=== PATIENT | female | born 1975 | race African-American/Black ===

== ENCOUNTER 2016-10-10 22:09 | Emergency (ER) | payer OTHER ==
[2016-10-10 22:26] VITALS: BP 124/75; BMI 26.0
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
[2016-10-10] MEDS ORDERED: TORADOL 60 MG VIAL IM ONE (23:51)
[2016-10-10] MEDS ORDERED: TORADOL 60 MG VIAL ONE (23:55)
== END 2016-10-11 00:13 | disposition home or self-care (01) ==
LOC: ER 22:32
DX: G44.319 Acute post-traumatic headache, not intractable (principal)
CPT/HCPCS: 96372; 99282; J1885

== ENCOUNTER 2017-01-22 11:43 | Emergency (ER) | payer OTHER ==
[2017-01-22 11:48] VITALS: BP 181/95; BMI 28.7
--- NOTE | 2017-01-22 12:47 | DR.EXTPAIN ---
HPI - Time seen Time seen: 12:39 - PCP Primary Care Physician: GUERO - Complaint/Symptoms Chief Complaint Doctor Comments: L sided back pain after falling( " I did a split") Chief Complaint:: FELL AT THE [employer] OUT FRONT Self Treatment fo Chief Complaint: NONE - Nurses notes reviewed Nurses Notes Review: Yes - Source History Provided: Patient - Mode of arrival Mode of Arrival: Ambulatory - Timing Onset of Chief Complaint: 01/22/17 - Associated signs and symptoms Associated Signs and Symptoms: Pain PMH - PMH Past Medical History: No Past Medical History: Anxiety, Migraines Past Surgical History: Yes 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 Past Surgical History Comment: TUBAL - Family History History of Family Medical Conditions: Yes Family Medical History: Diabetes Mellitus, Cancer, Coronary Artery Disease - Social History Does patient currently use any type of tobacco product: Yes Have you used tobacco products in the last 12 months: Yes Type of Tobacco Use: Cigarettes How many years tobacco product used: 22 Does any household member use tobacco: No Alcohol Use: None Do you use any recreational Drugs:: No Lives With: Family Lives Where: Home - infectious screening In the last 2 months have you had wt loss of >10#?: NO Have you had fever, night sweats or hemotysis?: No Have you traveled outside the country in the last 6 months?: No Isolation: Standard ROS - Review of Systems Respiratoy: No Symptoms Reported Cardiovascular: No Symptoms Reported Gastrointestinal/Abdominal: No Symptoms Reported Genitourinary: No Symptoms Reported Neurological: No Symptoms Reported Musculoskeletal: Back Pain Integumentary: No Symptoms Reported Hematologic/Lymphatic: No Symptoms Reported Endocrine: No Symptoms Reported Psychiatric: No Symptoms Reported All Other Systems: Reviewed and Negative PE - Vital Signs Vitals: Temperature 98.1 F Pulse Rate 107 Respiratory Rate 16 Blood Pressure 181/95 O2 Sat by Pulse Oximetry 100 - General Limitations: No Limitations General Appearance: Alert, In No Apparent Distress - Head Head Exam: Normal Inspection - Eyes Eye exam: Normal Appearance - Neck Neck Exam: Normal Inspection, Full ROM - Chest Chest Inspection: Normal Inspection - Respiratory Respiratory Exam: Normal Lung Sounds Bilat - Cardiovascular Cardiovascular Exam: Regular Rate, Normal Rhythm, Normal Heart Sounds - Abdominal Exam Abdominal Exam: Normal Inspection, Normal Bowel Sounds, Soft - Extremities Extremities Exam: Normal Inspection, Full ROM - Upper Extremities Shoulder Exam: Normal Inspection, Full ROM Arm Exam: Normal Inspection, Full ROM Elbow Exam: Normal Inspection, Full ROM Forearm Exam: Normal Inspection, Full ROM Hand Exam: Normal Inspection, Full ROM Neuromotor Exam: Normal Exam Neurosensory Exam: Normal Exam Upper Ext. Vascular Exam: Capillary Refill, Radial Pulse, Ulnar Pulse, Brachial Pulse - Lower Extremities Hip/Pelvis Exam: Normal Inspection, Full ROM Upper Leg Exam: Normal Inspection, Full ROM Knee Exam: Normal Inspection, Full ROM Lower Leg Exam: Normal Inspection, Full ROM Ankle Exam: Normal Inspection, Full ROM Foot/Toe Exam: Normal Inspection, Full ROM Neurovascular/Tendon Exam: Normal Capillary Refill Gait Exam: Observed & Limited by Pain, Antalgic - Back Back Exam: Normal Inspection, Full ROM, Paraspinal Tenderness - Neurological Neurological Exam: Alert, Oriented X3, CN II-XII Intact - Psychiatric Psychiatric Exam: Normal Affect, Normal Mood - Skin Skin Exam: Warm, Dry, Intact, Normal Color - Discharge Plan Condition: Stable - Follow ups/Referrals Follow ups/Referrals: Urmila JACK [Primary Care Provider] - 3 days - Instructions
[2017-01-22] MEDS ORDERED: TORADOL 60 MG VIAL IM ONE (12:51)
[2017-01-22] MEDS ORDERED: DECADRON INJ IM ONE (12:51)
[2017-01-22] MEDS ORDERED: DECADRON INJ ONE (12:56)
[2017-01-22] MEDS ORDERED: TORADOL 60 MG VIAL ONE (12:56)
--- NOTE | 2017-01-22 13:42 | RAD ---
HISTORY: Back pain Study: Five views of the lumbar spine Comparison: None Findings: There is slight dextro curvature of the lumbar spine which may be accentuated by patient position. T he lumbar vertebral body heights are relatively maintained. No evidence of acute displaced fracture or significant subluxation is identified. Mild degenerative facet changes are noted. Minimal multile aman osteophytosis is also demonstrated. Portions of the spine are obscured by overlying bowel conten t. If symptoms persist correlation with CT and or MRI may be helpful. IMPRESSION: 1. Mild degenerative changes as above. Reported By:
== END 2017-01-22 13:37 | disposition home or self-care (01) ==
LOC: ER 12:09
DX: S39.012A Strain of muscle, fascia and tendon of lower back, initial encounter (principal); W19.XXXA Unspecified fall, initial encounter; Y92.512 Supermarket, store or market as the place of occurrence of the external cause
CPT/HCPCS: 72110; 96372; 99282; J1100; J1885

== ENCOUNTER 2017-11-04 20:58 | Emergency (ER) | payer OTHER ==
[2017-11-04 21:04] VITALS: BMI 28.7
[2017-11-04] MEDS ORDERED: ASPIRIN 81 MG CHEWTAB ONE (21:15)
[2017-11-04] MEDS ORDERED: NITROSTAT SL ONE (21:15)
--- NOTE | 2017-11-04 21:22 | DR.GENAD ---
HPI - PCP Primary Care Physician: GUERO - Complaint/Symptoms Chief Complaint Doctors Comments: Patient denies a history of cardiopulmonary disease. Patient has hypertension but has not taken her medication in 1-2 weeks. Chief Complaint:: PT STATES" I HAD TO CALL THE AMBULANCE TO BRING MY DADDY AND I GUESS I'LL JUST GO AHEAD AND GET CHECKED OUT. 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 - Family History History of Family Medical Conditions: Yes Family Medical History: Diabetes Mellitus, Cancer, Coronary Artery Disease - Social History Type of Tobacco Use: Cigarettes Does any household member use tobacco: No Alcohol Use: Occasionally Do you use any recreational Drugs:: No Lives With: Family Lives Where: Home - infectious screening In the last 2 months have you had wt loss of >10#?: NO Have you had fever, night sweats or hemotysis?: No Have you traveled outside the country in the last 6 months?: No Isolation: Standard ROS - Review of Systems Eyes: No Symptoms Reported ENTM: No Symptoms Reported Respiratoy: No Symptoms Reported Cardiovascular: No Symptoms Reported Gastrointestinal/Abdominal: No Symptoms Reported Genitourinary: No Symptoms Reported Neurological: No Symptoms Reported Musculoskeletal: No Symptoms Reported Integumentary: No Symptoms Reported Hematologic/Lymphatic: No Symptoms Reported Endocrine: No Symptoms Reported Psychiatric: No Symptoms Reported All Other Systems: Reviewed and Negative PE - Vital Signs Vitals: Temperature 99 F Pulse Rate 97 Respiratory Rate 18 Blood Pressure 178/115 O2 Sat by Pulse Oximetry 100 - General General Appearance: Alert, In No Apparent Distress - Head Head Exam: Normal Inspection, Atraumatic - Eyes Eye exam: Normal Appearance, PERRL, EOMI - ENT ENT Exam: Normal Exam External Ear Exam: Normal External Inspection TM/Canal Exam: Bilateral Normal Nose Exam: Normal Nose Exam, Sinus Tenderness Mouth Exam: Normal Inspection Throat Exam: Normal Inspection - Neck Neck Exam: Normal Inspection - Chest Chest Inspection: Normal Inspection - Respiratory Respiratory Exam: Normal Lung Sounds Bilat Respiratory Exam: Bilateral Clear to Auscultation - Cardiovascular Cardiovascular Exam: Regular Rate - Abdominal Exam Abdominal Exam: Normal Inspection, Normal Bowel Sounds Abdominal Tenderness: negative: RUQ, RLQ, LUQ, LLQ, Epigastrium, Suprapubic, Diffuse, Mild, Moderate, Severe, Other - Extremities Extremities Exam: Normal Inspection, Full ROM - Back Back Exam: Normal Inspection, Full ROM - Neurologic Neurological Exam: Alert, Oriented X3, CN II-XII Intact - Psychiatric Psychiatric Exam: Normal Affect, Normal Mood - Skin Skin Exam: Warm, Dry, Intact Course - Education/Counseling Educated On: Treatment, Diagnosis, Prognosis ROR - Labs Reviewed Result Diagrams: 11/04/17 21:25 11/04/17 21:25 Laboratory: WBC 5.9 X10^3/uL (3.6-10.0) 11/04/17 21: RBC 4.23 X10^6/uL (3.5-5.4) 11/04/17 21: Hgb 10.0 g/dL (12.0-16.0) L 11/04/17 21:25 Hct 31.6 % (36.0-47.0) L 11/04/17 21:25 MCV 74.7 fL (80.0-100.0) L 11/04/17 21:25 MCH 23.7 pg (27.0-34.0) L 11/04/17 21: MCHC 31.7 g/dL (33.0-35.0) L 11/04/17 21: RDW 18.1 % (11.6-16.5) H 11/04/17 21:25 Plt Count 351 X10^3/uL (150.0-450.0) 11/04/17 21:25 Plt Count Comment Adequate (ADEQUATE) 11/04/17 21:25 MPV 8.0 fL (7.4-11.0) 11/04/17 21:25 Neut % (Auto) 39.3 % (42.0-75.0) L 11/04/17 21:25 Lymph % (Auto) 49.4 % (21.0-51.0) 11/04/17 21:25 [place] % (Auto) 7.9 % (0.0-13.0) 11/04/17 21:25 Eos % (Auto) 1.8 % (0.9-2.9) 11/04/17 21:25 Baso % (Auto) 1.6 % (0.2-1.0) H 11/04/17 21:25 Neut # (Auto) 2.3 x10^3/uL (2.2-4.8) 11/04/17 21: Lymph # (Auto) 2.9 X10^3/uL (1.3-2.9) 11/04/17 21:25 [place] # (Auto) 0.5 x10^3/uL (0.3-0.8) 11/04/17 21:25 Eos # (Auto) 0.1 x10^3/uL (0.0-0.2) 11/04/17 21:25 Baso # (Auto) 0.1 X10^3/uL (0.0-0.1) 11/04/17 21: Absolute Nucleated RBC 0.0 /100WBC 11/04/17 21:25 Plt Morphology Comment Normal (NORMAL) 11/04/17 21: RBC Morphology Abnormal (NORMAL) A 11/04/17 21: Hypochromasia 1+ A 11/04/17 21:25 INR Target Range - 11/04/17: INR 0.87 (0.8-1.3) 11/04/17 21: APTT 25.4 SECONDS (22.9-36.5) 11/04/17 21: PTT Comment - 11/04/17 21:25 Sodium 137 mmol/L (136-145) 11/04/17 21:25 Corrected Sodium TNP 11/04/17 21:25 Potassium 3.7 mmol/L (3.5-5.1) 11/04/17 21:25 Chloride 102 mmol/L (98-107) 11/04/17 21:25 Carbon Dioxide 26.5 mmol/L (21-32) 11/04/17 21:25 BUN 6 mg/dL (7-18) L 11/04/17 21:25 Creatinine 0.78 mg/dL (0.55-1.02) 11/04/17 21:25 Est GFR (MDRD) Af Amer > 60 (>60) 11/04/17 21:25 Est GFR (MDRD) Non-Af > 60 (>60) 11/04/17 21:25 Glucose 94 mg/dL (65-99) 11/04/17 21:25 Calcium 7.9 mg/dL (8.5-10.1) L 11/04/17 21:25 Corrected Calcium TNP 11/04/17 21:25 Magnesium 2.0 mg/dL (1.7-2.9) 11/04/17 21:25 Total Bilirubin 0.20 mg/dL (0.2-1.0) 11/04/17 21:25 AST 23 Units/L (15-37) 11/04/17 21:25 ALT 19 Units/L (12-78) 11/04/17 21:25 Alkaline Phosphatase 85 Units/L (46-116) 11/04/17 21:25 Creatine Kinase 216 Units/L (26-192) H 11/04/17 21:25 CK-MB (CK-2) < 1.0 ng/mL (0-4.0) 11/04/17 21:25 CK/CKMB % Calc 0.5 % (<4) 11/04/17 21:25 Troponin I < 0.02 ng/mL (0-1.5) 11/04/17 21:25 Total Protein 8.3 g/dL (6.4-8.2) H 11/04/17 21:25 Albumin 3.9 g/dL (3.4-5.0) 11/04/17 21:25 Globulin 4.4 g/dL (2.5-4.5) 11/04/17 21:25 Albumin/Globulin Ratio 0.9 Ratio (1.1-2.1) L 11/04/17 21:25 Specimen Type Clean catch urine 11/04/17 22:00 Urine Color Yellow (YELLOW) 11/04/17 22:00 Urine Appearance Clear (CLEAR) 11/04/17 22:00 Urine pH 7.0 (5.0 - 8.0) 11/04/17 22:00 Ur Specific [place] 1.005 (1.000-1.030) 11/04/17 22:00 Urine Protein Negative (NEGATIVE) 11/04/17 22:00 Urine Glucose (UA) Negative (NEGATIVE) 11/04/17 22:00 Urine Ketones Negative (NEGATIVE) 11/04/17 22:00 Urine Occult Blood Negative (NEGATIVE) 11/04/17 22:00 Urine Nitrite Negative (NEGATIVE) 11/04/17 22:00 Urine Bilirubin Negative (NEGATIVE) 11/04/17 22:00 Urine Urobilinogen Normal (NORMAL) 11/04/17 22:00 Ur Leukocyte Esterase Negative (NEGATIVE) 11/04/17 22:00 - XRAY XRAY Interpreted by: Radiologist (Acute Abdom Series: no acute abnormality) - Diagnosis Discharge Problem: Chest pain due to psychological stress Hypertension Qualifiers: Hypertension type: essential hypertension Qualified Code(s): I10 - Essential ( primary) hypertension - Discharge Plan Condition: Stable - Follow ups/Referrals Follow ups/Referrals: NFD,None [Primary Care Provider] - 3 days - Instructions
[2017-11-04] MEDS: NITROSTAT SL PRN ×2 (21:24→21:30)
[2017-11-04 21:36] LABS: BASOPHILS # (AUTO) 0.1 X10^3/uL (0.0-0.1); BASOPHILS % (AUTO) 1.6 % (0.2-1.0); EOSINOPHILS # (AUTO) 0.1 x10^3/uL (0.0-0.2); EOSINOPHILS % (AUTO) 1.8 % (0.9-2.9); HEMATOCRIT 31.6 % (36.0-47.0); LYMPHOCYTES # (AUTO) 2.9 X10^3/uL (1.3-2.9); LYMPHOCYTES % (AUTO) 49.4 % (21.0-51.0); MEAN CORPUSCULAR HEMOGLOBIN 23.7 pg (27.0-34.0); MEAN CORPUSCULAR HGB CONC 31.7 g/dL (33.0-35.0); MEAN CORPUSCULAR VOLUME 74.7 fL (80.0-100.0); MONOCYTES # (AUTO) 0.5 x10^3/uL (0.3-0.8); MONOCYTES % (AUTO) 7.9 % (0.0-13.0); NEUTROPHILS # (AUTO) 2.3 x10^3/uL (2.2-4.8); NEUTROPHILS % (AUTO) 39.3 % (42.0-75.0); PLATELET COUNT 351 X10^3/uL (150.0-450.0); RED BLOOD COUNT 4.23 X10^6/uL (3.5-5.4); RED CELL DISTRIBUTION WIDTH 18.1 % (11.6-16.5); WHITE BLOOD COUNT 5.9 X10^3/uL (3.6-10.0)
--- NOTE | 2017-11-04 21:43 | RAD ---
HISTORY: Chest pain Study: Single view chest Comparison:None Findings: Single portable view is submitted. No infiltrate, effusion or pneumothorax identified. The cardiac an d mediastinal contours are within normal limits. The soft tissues are unremarkable. IMPRESSION: 1. No acute cardiopulmonary abnormality. Reported By:
[2017-11-04 21:50] LABS: ALANINE AMINOTRANSFERASE 19 Units/L (12-78); ALBUMIN 3.9 g/dL (3.4-5.0); ALKALINE PHOSPHATASE 85 Units/L (46-116); ASPARTATE AMINO TRANSFERASE 23 Units/L (15-37); BLOOD UREA NITROGEN 6 mg/dL (7-18); CALCIUM 7.9 mg/dL (8.5-10.1); CARBON DIOXIDE 26.5 mmol/L (21-32); CHLORIDE 102 mmol/L (98-107); CREATININE 0.78 mg/dL (0.55-1.02); SODIUM 137 mmol/L (136-145); TOTAL PROTEIN 8.3 g/dL (6.4-8.2); eGFR BLACK RACES > 60 (>60); eGFR NON BLACK RACES > 60 (>60)
[2017-11-04] MEDS ORDERED: ASPIRIN PO SCH (22:00)
[2017-11-04 22:05] LABS: CKMB % 0.5 % (<4); CREATINE KINASE 216 Units/L (26-192); CREATINE KINASE MB < 1.0 ng/mL (0-4.0); TROPONIN I < 0.02 ng/mL (0-1.5)
[2017-11-04 22:14] LABS: BILIRUBIN,URINE NEGATIVE (NEGATIVE); BLOOD/HEMOGLOBIN,URINE NEGATIVE (NEGATIVE); GLUCOSE, URINE NEGATIVE (NEGATIVE); KETONES,URINE NEGATIVE (NEGATIVE); LEUKOCYTE ESTERASE ,URINE NEGATIVE (NEGATIVE); NITRITES,URINE NEGATIVE (NEGATIVE); PROTEIN,URINE NEGATIVE (NEGATIVE); UROBILINOGEN,URINE NORMAL (NORMAL)
[2017-11-04] MEDS ORDERED: MORPHINE SULFATE INJ 2 MG INJ IVP ONE (22:17)
[2017-11-04 22:18] LABS: HYPOCHROMASIA 1+; PLATELET MORPHOLOGY COMMENT NORMAL (NORMAL)
[2017-11-04 22:26] LABS: APPEARANCE,URINE CLEAR (CLEAR); COLOR,URINE YELLOW (YELLOW)
[2017-11-04] MEDS ORDERED: MORPHINE SULFATE INJ 2 MG INJ ONE (22:33)
[2017-11-04 22:45] VITALS: BP 148/75
== END 2017-11-04 22:50 | disposition home or self-care (01) ==
LOC: ER 21:09
DX: R07.89 Other chest pain (principal); I10 Essential (primary) hypertension
CPT/HCPCS: 36415; 71045; 80053; 81003; 82550; 82553; 83735; 84484; 85025; 85610; 85730; 93005; 93010; 96365; 96374; 99283; A4222; J2270

== ENCOUNTER 2018-01-05 19:19 | Observation (INO) ==
[2018-01-05] MEDS ORDERED: NITROSTAT SL ONE (20:00)
[2018-01-05] MEDS ORDERED: ASPIRIN ONE (20:00)
[2018-01-05] MEDS ORDERED: ASPIRIN PO ONE (20:01)
[2018-01-05] MEDS: NITROSTAT SL PRN ×3 (20:06→20:53)
[2018-01-05 20:15] LABS: BASOPHILS # (AUTO) 0.1 X10^3/uL (0.0-0.1); BASOPHILS % (AUTO) 1.3 % (0.2-1.0); EOSINOPHILS # (AUTO) 0.1 x10^3/uL (0.0-0.2); EOSINOPHILS % (AUTO) 0.9 % (0.9-2.9); HEMOGLOBIN 9.9 g/dL (12.0-16.0); LYMPHOCYTES # (AUTO) 2.8 X10^3/uL (1.3-2.9); LYMPHOCYTES % (AUTO) 36.2 % (21.0-51.0); MEAN CORPUSCULAR HEMOGLOBIN 24.8 pg (27.0-34.0); MEAN CORPUSCULAR HGB CONC 31.9 g/dL (33.0-35.0); MEAN PLATELET VOLUME 8.4 fL (7.4-11.0); MONOCYTES # (AUTO) 0.4 x10^3/uL (0.3-0.8); MONOCYTES % (AUTO) 5.7 % (0.0-13.0); NEUTROPHILS # (AUTO) 4.3 x10^3/uL (2.2-4.8); NEUTROPHILS % (AUTO) 55.9 % (42.0-75.0); PLATELET COUNT 347 X10^3/uL (150.0-450.0); RED BLOOD COUNT 3.97 X10^6/uL (3.5-5.4); WHITE BLOOD COUNT 7.7 X10^3/uL (3.6-10.0)
[2018-01-05] MEDS: NS 1000 ML 1,000 ML IV SCH (20:15)
--- NOTE | 2018-01-05 20:21 | RAD ---
Chest AP portable Indication: Chest pain. Comparison: 11/04/2017 Findings: There is no pneumothorax, effusion or consolidation. Monitoring leads obscure minimal detai l. Heart size is normal for technique. Impression: No acute chest process. Reported By:
--- NOTE | 2018-01-05 20:29 | DR.GENAD ---
HPI - PCP Primary Care Physician: GUERO - Complaint/Symptoms Chief Complaint Doctors Comments: Patient presented with complaint of chest pain for two days. She denies a history of cardiac dizease. She has been taking aspirin and pepto bismal and continues to have chest pain. The pain is left superior breast,back and down left arm. She smokes <a ppd. Chief Complaint:: CHEST PAIN. 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 - Family History History of Family Medical Conditions: Yes Family Medical History: Diabetes Mellitus, Cancer, Coronary Artery Disease - Social History Does patient currently use any type of tobacco product: Yes Have you used tobacco products in the last 12 months: Yes Type of Tobacco Use: Cigarettes Does any household member use tobacco: Yes Alcohol Use: None Do you use any recreational Drugs:: No Lives With: Family Lives Where: Home - infectious screening In the last 2 months have you had wt loss of >10#?: NO Have you had fever, night sweats or hemotysis?: No Have you traveled outside the country in the last 6 months?: No Isolation: Standard ROS - Review of Systems Eyes: No Symptoms Reported ENTM: No Symptoms Reported Respiratoy: No Symptoms Reported Cardiovascular: No Symptoms Reported Gastrointestinal/Abdominal: No Symptoms Reported Genitourinary: No Symptoms Reported Neurological: No Symptoms Reported Musculoskeletal: No Symptoms Reported Integumentary: No Symptoms Reported Hematologic/Lymphatic: No Symptoms Reported Endocrine: No Symptoms Reported Psychiatric: No Symptoms Reported All Other Systems: Reviewed and Negative PE - General General Appearance: Alert, In No Apparent Distress - Head Head Exam: Normal Inspection, Atraumatic - Eyes Eye exam: Normal Appearance, PERRL, EOMI - ENT ENT Exam: Normal Exam TM/Canal Exam: Bilateral Normal Nose Exam: Normal Nose Exam Mouth Exam: Normal Inspection Throat Exam: Normal Inspection - Neck Neck Exam: Normal Inspection, Full ROM - Chest Chest Inspection: Normal Inspection - Respiratory Respiratory Exam: Normal Lung Sounds Bilat Respiratory Exam: Bilateral Clear to Auscultation - Cardiovascular Cardiovascular Exam: Regular Rate - Abdominal Exam Abdominal Exam: Normal Inspection, Normal Bowel Sounds Abdominal Tenderness: negative: RUQ, RLQ, LUQ, LLQ, Epigastrium, Suprapubic, Diffuse, Mild, Moderate, Severe, Other - Extremities Extremities Exam: Normal Inspection - Back Back Exam: Normal Inspection - Neurologic Neurological Exam: Alert, Oriented X3, CN II-XII Intact - Psychiatric Psychiatric Exam: Normal Affect - Skin Skin Exam: Warm, Dry, Intact - Vital Signs Vitals: Temperature 98.2 F Pulse Rate [Right] 61 Pulse Rate 68 Respiratory Rate 21 Blood Pressure [Left Arm] 145/68 Blood Pressure 147/82 O2 Sat by Pulse Oximetry 100 Course - Reevaluation 1st: Improved - Consultation Called: 21:54 (Dr Leggett agreed to admit for further work up) ROR - Labs Reviewed Result Diagrams: 01/05/18 20:00 01/05/18 20:00 - XRAY XRAY Interpreted by: Radiologist (Chest: No acute chest process) - Labs Reviewed Laboratory: WBC 7.7 X10^3/uL (3.6-10.0) 01/05/18 20:00 RBC 3.97 X10^6/uL (3.5-5.4) 01/05/18 20:00 Hgb 9.9 g/dL (12.0-16.0) L 01/05/18 20:00 Hct 31.0 % (36.0-47.0) L 01/05/18 20:00 MCV 78.0 fL (80.0-100.0) L 01/05/18 20:00 MCH 24.8 pg (27.0-34.0) L 01/05/18 20:00 MCHC 31.9 g/dL (33.0-35.0) L 01/05/18 20:00 RDW 19.0 % (11.6-16.5) H 01/05/18 20:00 Plt Count 347 X10^3/uL (150.0-450.0) 01/05/18 20:00 Plt Count Comment Adequate (ADEQUATE) 01/05/18 20:00 MPV 8.4 fL (7.4-11.0) 01/05/18 20:00 Neut % (Auto) 55.9 % (42.0-75.0) 01/05/18 20:00 Lymph % (Auto) 36.2 % (21.0-51.0) 01/05/18 20:00 [place] % (Auto) 5.7 % (0.0-13.0) 01/05/18 20:00 Eos % (Auto) 0.9 % (0.9-2.9) 01/05/18 20:00 Baso % (Auto) 1.3 % (0.2-1.0) H 01/05/18 20:00 Neut # (Auto) 4.3 x10^3/uL (2.2-4.8) 01/05/18 20:00 Lymph # (Auto) 2.8 X10^3/uL (1.3-2.9) 01/05/18 20:00 [place] # (Auto) 0.4 x10^3/uL (0.3-0.8) 01/05/18 20:00 Eos # (Auto) 0.1 x10^3/uL (0.0-0.2) 01/05/18 20:00 Baso # (Auto) 0.1 X10^3/uL (0.0-0.1) 01/05/18 20:00 Absolute Nucleated RBC 0.0 /100WBC 01/05/18 20:00 Plt Morphology Comment Normal (NORMAL) 01/05/18 20:00 RBC Morphology Normal (NORMAL) 01/05/18 20:00 INR Target Range - 01/05/18 20:00 INR 0.95 (0.8-1.3) 01/05/18 20:00 APTT 26.6 SECONDS (22.9-36.5) 01/05/18 20:00 PTT Comment - 01/05/18 20:00 Sodium 138 mmol/L (136-145) 01/05/18 20:00 Corrected Sodium TNP 01/05/18 20:00 Potassium 3.3 mmol/L (3.5-5.1) L 01/05/18 20:00 Chloride 103 mmol/L (98-107) 01/05/18 20:00 Carbon Dioxide 25.7 mmol/L (21-32) 01/05/18 20:00 BUN 13 mg/dL (7-18) 01/05/18 20:00 Creatinine 0.74 mg/dL (0.55-1.02) 01/05/18 20:00 Est GFR (MDRD) Af Amer > 60 (>60) 01/05/18 20:00 Est GFR (MDRD) Non-Af > 60 (>60) 01/05/18 20:00 Glucose 86 mg/dL (65-99) 01/05/18 20:00 Calcium 9.3 mg/dL (8.5-10.1) 01/05/18 20:00 Corrected Calcium TNP 01/05/18 20:00 Magnesium 1.8 mg/dL (1.7-2.9) 01/05/18 20:00 Total Bilirubin 0.40 mg/dL (0.2-1.0) 01/05/18 20:00 AST 25 Units/L (15-37) 01/05/18 20:00 ALT 19 Units/L (12-78) 01/05/18 20:00 Alkaline Phosphatase 72 Units/L (46-116) 01/05/18 20:00 Creatine Kinase 143 Units/L (26-192) 01/05/18 20:00 CK-MB (CK-2) < 1.0 ng/mL (0-4.0) 01/05/18 20:00 CK/CKMB % Calc 0.7 % (<4) 01/05/18 20:00 Troponin I < 0.02 ng/mL (0-1.5) 01/05/18 20:00 Total Protein 7.9 g/dL (6.4-8.2) 01/05/18 20:00 Albumin 3.9 g/dL (3.4-5.0) 01/05/18 20:00 Globulin 4.0 g/dL (2.5-4.5) 01/05/18 20:00 Albumin/Globulin Ratio 1.0 Ratio (1.1-2.1) L 01/05/18 20:00 - Diagnosis Discharge Problem: Chest pain Qualifiers: Chest pain type: unspecified Qualified Code(s): R07.9 - Chest pain, unspecified - Discharge Plan Disposition: ADMITTED INPATIENT Condition: Stable - Follow ups/Referrals Follow ups/Referrals: Urmila JACK [Primary Care Provider] - 3 days - Instructions
[2018-01-05 20:31] LABS: BLOOD UREA NITROGEN 13 mg/dL (7-18); CALCIUM 9.3 mg/dL (8.5-10.1); CARBON DIOXIDE 25.7 mmol/L (21-32); CHLORIDE 103 mmol/L (98-107); CREATININE 0.74 mg/dL (0.55-1.02); SODIUM 138 mmol/L (136-145); TROPONIN I < 0.02 ng/mL (0-1.5); eGFR NON BLACK RACES > 60 (>60)
[2018-01-05 20:36] LABS: ALANINE AMINOTRANSFERASE 19 Units/L (12-78); ALBUMIN 3.9 g/dL (3.4-5.0); ALKALINE PHOSPHATASE 72 Units/L (46-116); ASPARTATE AMINO TRANSFERASE 25 Units/L (15-37); CKMB % 0.7 % (<4); CREATINE KINASE 143 Units/L (26-192); CREATINE KINASE MB < 1.0 ng/mL (0-4.0); MAGNESIUM 1.8 mg/dL (1.7-2.9); TOTAL PROTEIN 7.9 g/dL (6.4-8.2)
[2018-01-05 20:48] LABS: PLATELET MORPHOLOGY COMMENT NORMAL (NORMAL)
[2018-01-05] MEDS ORDERED: K-LYTE EFFERVESCENT PO ONE (21:33)
[2018-01-05] MEDS ORDERED: K-LYTE EFFERVESCENT ONE (21:36)
[2018-01-05] MEDS ORDERED: CATAPRES TAB 0.1 MG PO ONE (22:35)
[2018-01-05] MEDS ORDERED: AMBIEN PO PRN (22:56)
[2018-01-05] MEDS: XANAX PO PRN (23:05)
[2018-01-05 23:14] VITALS: BMI 26.6
[2018-01-06] MEDS ORDERED: MORPHINE SULFATE INJ 2 MG INJ ONE
[2018-01-06] MEDS: MORPHINE SULFATE INJ 2 MG INJ IVP PRN ×2 (00:04→08:06)
[2018-01-06 00:29] LABS: CKMB % 0.7 % (<4); CREATINE KINASE 137 Units/L (26-192); CREATINE KINASE MB < 1.0 ng/mL (0-4.0); TROPONIN I < 0.02 ng/mL (0-1.5)
[2018-01-06 05:08] LABS: BASOPHILS # (AUTO) 0.1 X10^3/uL (0.0-0.1); BASOPHILS % (AUTO) 0.7 % (0.2-1.0); EOSINOPHILS # (AUTO) 0.1 x10^3/uL (0.0-0.2); EOSINOPHILS % (AUTO) 1.6 % (0.9-2.9); HEMATOCRIT 28.9 % (36.0-47.0); HEMOGLOBIN 9.4 g/dL (12.0-16.0); LYMPHOCYTES # (AUTO) 3.7 X10^3/uL (1.3-2.9); LYMPHOCYTES % (AUTO) 48.4 % (21.0-51.0); MEAN CORPUSCULAR HEMOGLOBIN 25.5 pg (27.0-34.0); MEAN CORPUSCULAR HGB CONC 32.4 g/dL (33.0-35.0); MEAN CORPUSCULAR VOLUME 78.6 fL (80.0-100.0); MEAN PLATELET VOLUME 8.4 fL (7.4-11.0); MONOCYTES # (AUTO) 0.4 x10^3/uL (0.3-0.8); MONOCYTES % (AUTO) 5.3 % (0.0-13.0); NEUTROPHILS # (AUTO) 3.4 x10^3/uL (2.2-4.8); PLATELET COUNT 315 X10^3/uL (150.0-450.0); RED BLOOD COUNT 3.68 X10^6/uL (3.5-5.4); WHITE BLOOD COUNT 7.6 X10^3/uL (3.6-10.0)
[2018-01-06 05:29] LABS: PLATELET MORPHOLOGY COMMENT NORMAL (NORMAL)
[2018-01-06 05:32] LABS: ALANINE AMINOTRANSFERASE 16 Units/L (12-78); ALBUMIN 3.1 g/dL (3.4-5.0); ALKALINE PHOSPHATASE 63 Units/L (46-116); ASPARTATE AMINO TRANSFERASE 23 Units/L (15-37); BLOOD UREA NITROGEN 10 mg/dL (7-18); CALCIUM 8.3 mg/dL (8.5-10.1); CARBON DIOXIDE 27.7 mmol/L (21-32); CHLORIDE 106 mmol/L (98-107); CHOL/HDL RATIO 2.5 (0.0-5.0); CHOLESTEROL 146 mg/dL (0-200); CKMB % 0.9 % (<4); CREATINE KINASE 110 Units/L (26-192); CREATINE KINASE MB < 1.0 ng/mL (0-4.0); CREATININE 0.64 mg/dL (0.55-1.02); HDL CHOLESTEROL 59 mg/dL (40-60); SODIUM 140 mmol/L (136-145); TOTAL PROTEIN 6.7 g/dL (6.4-8.2); TRIGLYCERIDES 112 mg/dL (0-150); TROPONIN I < 0.02 ng/mL (0-1.5); eGFR NON BLACK RACES > 60 (>60)
[2018-01-06] MEDS: NS 1000 ML 1,000 ML IV SCH ×2 (05:47→13:28)
[2018-01-06] MEDS ORDERED: NORCO 10/325 TAB PO PRN (08:49)
[2018-01-06] MEDS ORDERED: ZESTRIL TAB 10 MG PO SCH (09:00)
[2018-01-06] MEDS: XANAX PO PRN (10:36)
[2018-01-06 17:18] VITALS: BP 153/86
--- NOTE | 2018-01-15 12:30 | DR.CARTERS ---
Short Stay Summary - Short Stay Summary for: Short Stay Summary for Date of:: 01/05/18 - Admission Date Date of Admission: 01/05/18 - Discharge Date Discharge Date: 01/06/18 - Admission Diagnoses (1) Chest pain Status: Acute - Hospital Course Hospital Course: is a 42 year old patient of who presented to the [facility] emergency room with complaints of chest pain, feeling light headed, and tingling in left arm. The pain is noted to be in the left superior breast, back, and down left arm. She reports taking an Aspirin and Pepto-Bismal without relief in symptoms. She states that pain started two days ago. On arrival, vitals were 98.8, 57, 20, 100% RA, 168/97. Labs were obtained. Abnormal Labs include the following: HGB 9.9, HCT 31.0, MCV 78.0, MCH 24.8, MCHC 31.9, RDW 19.0, Potassium 3.3, A/G ratio 1.0. A chest x-ray was performed and showed no acute chest process. EKG showed sinus rhythm with a heart rate of 54. Patient will be admitted for further evaluation of chest pain to R/O acute CA. We planned obtain serial cardiac enzymes and serial EKGs. We started Normal Saline @ 125 MLS/HR for aggressive IV hydration. We will continue to monitor and repeat labs in the am. On the morning following admission, patient is alert and oriented, lying in bed on morning rounds. She reports improvement in pain and denies chest pain at the present time. Her vitals this morning are 97.7-52-22-100%-166/85. Labs were obtained. She is hemodynamically stable. Cardiac enzymes and EKGs have been within normal limits. We planned for discharge. Instructions for medications and follow-up were given to patient. She was instructed to continue her current medications and to follow-up with in three days. Patient discharged to home in stable condition. - Discharge Medications Discharge Medications: Home Medication List alprazolam [Xanax] 0.5 mg PO BID PRN 01/06/18 [History] hydrocodone-acetaminophen [[place]] 1 day PO BID PRN 01/06/18 [History] lisinopril [Zestril] 10 mg PO BID 01/06/18 [History] tizanidine 4 mg PO BID PRN 01/06/18 [History] zolpidem [Ambien] 10 mg PO HS 01/06/18 [History] Prescriptions: - Discharge Plan Disposition: 01 HOME, SELF-CARE Condition: Stable - Follow up/Referrals Follow up/Referrals: Urmila JACK [Primary Care Provider] - 3 days (OFFICE CLOSED PATIENT TO CALL FOR APPOINTMENT ) - Instructions Instructions: Steps to Quit Smoking, [id number], Smoking Tobacco Information , Nonspecific Chest Pain, [id number], Hypertension, [id number] Forms: Patient Portal
--- NOTE | 2018-02-02 13:10 | DR.GENAD ---
HPI PCP Primary Care Physician: GUERO Complaint/Symptoms Chief Complaint:: CHEST PAIN. 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 Family History History of Family Medical Conditions: Yes Family Medical History: Diabetes Mellitus, Cancer and Coronary Artery Disease Social History Does patient currently use any type of tobacco product: Yes Have you used tobacco products in the last 12 months: Yes Type of Tobacco Use: Cigarettes Does any household member use tobacco: Yes Alcohol Use: None Do you use any recreational Drugs:: No Lives With: Family Lives Where: Home infectious screening In the last 2 months have you had wt loss of >10#?: NO Have you had fever, night sweats or hemotysis?: No Have you traveled outside the country in the last 6 months?: No Isolation: Standard PE Vital Signs Vitals: Temperature 98.3 F Pulse Rate [Right] 69 Pulse Rate 68 Respiratory Rate 20 Blood Pressure [Left Arm] 153/86 Blood Pressure 147/82 O2 Sat by Pulse Oximetry 95 General General Appearance: Alert and In No Apparent Distress Head Head Exam: Normal Inspection and Atraumatic Eyes Eye exam: Normal Appearance, PERRL and EOMI ENT ENT Exam: Normal Exam, Normal Oropharynx, Mucous Membranes Moist and TM's Normal Bilaterally External Ear Exam: Normal External Inspection TM/Canal Exam: Bilateral: Normal Nose Exam: Normal Nose Exam Mouth Exam: Normal Inspection Throat Exam: Normal Inspection; negative Tonsillar Erythema Neck Neck Exam: Normal Inspection and Full ROM Chest Chest Inspection: Normal Inspection and Symmetric Chest Wall Rise Respiratory Respiratory Exam: Normal Lung Sounds Bilat and Accessory Muscle Use Respiratory Exam: Bilateral: Clear to Auscultation Cardiovascular Cardiovascular Exam: Regular Rate and Normal Rhythm Abdominal Exam Abdominal Exam: Normal Inspection and Normal Bowel Sounds Abdominal Tenderness: negative RUQ, RLQ and LUQ Extremities Extremities Exam: Normal Inspection Back Back Exam: Normal Inspection and Full ROM Neurologic Neurological Exam: Alert, Oriented X3 and CN II-XII Intact Psychiatric Psychiatric Exam: Normal Affect and Normal Mood Skin Skin Exam: Dry; negative Warm ROR Labs Reviewed Laboratory Results Reviewed?: Yes Result Diagrams: 01/06/18 04:30 01/06/18 04:30 Laboratory: WBC 7.6 X10^3/uL (3.6-10.0) 01/06/18 04:30 RBC 3.68 X10^6/uL (3.5-5.4) 01/06/18 04:30 Hgb 9.4 g/dL (12.0-16.0) L 01/06/18 04:30 Hct 28.9 % (36.0-47.0) L 01/06/18 04:30 MCV 78.6 fL (80.0-100.0) L 01/06/18 04:30 MCH 25.5 pg (27.0-34.0) L 01/06/18 04:30 MCHC 32.4 g/dL (33.0-35.0) L 01/06/18 04:30 RDW 19.0 % (11.6-16.5) H 01/06/18 04:30 Plt Count 315 X10^3/uL (150.0-450.0) 01/06/18 04:30 Plt Count Comment Adequate (ADEQUATE) 01/06/18 04:30 MPV 8.4 fL (7.4-11.0) 01/06/18 04:30 Neut % (Auto) 44.0 % (42.0-75.0) 01/06/18 04:30 Lymph % (Auto) 48.4 % (21.0-51.0) 01/06/18 04:30 [place] % (Auto) 5.3 % (0.0-13.0) 01/06/18 04:30 Eos % (Auto) 1.6 % (0.9-2.9) 01/06/18 04:30 Baso % (Auto) 0.7 % (0.2-1.0) 01/06/18 04:30 Neut # (Auto) 3.4 x10^3/uL (2.2-4.8) 01/06/18 04:30 Lymph # (Auto) 3.7 X10^3/uL (1.3-2.9) H 01/06/18 04:30 [place] # (Auto) 0.4 x10^3/uL (0.3-0.8) 01/06/18 04:30 Eos # (Auto) 0.1 x10^3/uL (0.0-0.2) 01/06/18 04:30 Baso # (Auto) 0.1 X10^3/uL (0.0-0.1) 01/06/18 04:30 Absolute Nucleated RBC 0.0 /100WBC 01/06/18 04:30 Plt Morphology Comment Normal (NORMAL) 01/06/18 04:30 RBC Morphology Normal (NORMAL) 01/06/18 04:30 INR Target Range - 01/05/18 20:00 INR 0.95 (0.8-1.3) 01/05/18 20:00 APTT 26.6 SECONDS (22.9-36.5) 01/05/18 20:00 PTT Comment - 01/05/18 20:00 Sodium 140 mmol/L (136-145) 01/06/18 04:30 Corrected Sodium TNP 01/06/18 04:30 Potassium 3.6 mmol/L (3.5-5.1) 01/06/18 04:30 Chloride 106 mmol/L (98-107) 01/06/18 04:30 Carbon Dioxide 27.7 mmol/L (21-32) 01/06/18 04:30 BUN 10 mg/dL (7-18) 01/06/18 04:30 Creatinine 0.64 mg/dL (0.55-1.02) 01/06/18 04:30 Est GFR (MDRD) Af Amer > 60 (>60) 01/06/18 04:30 Est GFR (MDRD) Non-Af > 60 (>60) 01/06/18 04:30 Glucose 104 mg/dL (65-99) H 01/06/18 04:30 Calcium 8.3 mg/dL (8.5-10.1) L 01/06/18 04:30 Corrected Calcium 9.0 mg/dL (8.5-10.1) 01/06/18 04:30 Magnesium 1.8 mg/dL (1.7-2.9) 01/05/18 20:00 Total Bilirubin 0.40 mg/dL (0.2-1.0) 01/06/18 04:30 AST 23 Units/L (15-37) 01/06/18 04:30 ALT 16 Units/L (12-78) 01/06/18 04:30 Alkaline Phosphatase 63 Units/L (46-116) 01/06/18 04:30 Creatine Kinase 110 Units/L (26-192) 01/06/18 04:30 CK-MB (CK-2) < 1.0 ng/mL (0-4.0) 01/06/18 04:30 CK/CKMB % Calc 0.9 % (<4) 01/06/18 04:30 Troponin I < 0.02 ng/mL (0-1.5) 01/06/18 04:30 Total Protein 6.7 g/dL (6.4-8.2) 01/06/18 04:30 Albumin 3.1 g/dL (3.4-5.0) L 01/06/18 04:30 Globulin 3.6 g/dL (2.5-4.5) 01/06/18 04:30 Albumin/Globulin Ratio 0.9 Ratio (1.1-2.1) L 01/06/18 04:30 Triglycerides 112 mg/dL (0-150) 01/06/18 04:30 Cholesterol 146 mg/dL (0-200) 01/06/18 04:30 LDL Cholesterol, Calc 65 mg/dL (0-100) 01/06/18 04:30 HDL Cholesterol 59 mg/dL (40-60) 01/06/18 04:30 Cholesterol/HDL Ratio 2.5 (0.0-5.0) 01/06/18 04:30 Diagnosis Discharge Problem: Chest pain Instructions Instructions: Steps to Quit Smoking, [id number] Smoking Tobacco Information Nonspecific Chest Pain, [id number] Hypertension, Melz-mi-Edgo Forms: Patient Portal
== END 2018-01-06 17:55 | disposition home or self-care (01) ==
LOC: ER 19:19 → MED/SURG 19:19
PROVIDERS: ADMIT Internal Medicine; ATTEND Internal Medicine
DX: I10 Essential (primary) hypertension; R07.89 Other chest pain
CPT/HCPCS: 36415; 71010; 71045; 80053; 80061; 82550; 82553; 83735; 84484; 85025; 85610; 85730; 93005; 93010; 94760; 99284; A4216; A4222; G0378; J2270; J7030; J8499

== ENCOUNTER 2024-07-01 03:36 | Inpatient (IN) ==
[2024-07-01 03:50] VITALS: BMI 21.2
[2024-07-01 04:09] LABS: BASOPHILS % (AUTO) 0.6 % (0.2-1.0); EOSINOPHILS # (AUTO) 0.1 x10^3/uL (0.0-0.2); EOSINOPHILS % (AUTO) 0.9 % (0.9-2.9); HEMATOCRIT 38.1 % (36.0-47.0); HEMOGLOBIN 13.1 g/dL (12.0-16.0); LYMPHOCYTES % (AUTO) 15.7 % (21.0-51.0); MEAN CORPUSCULAR HEMOGLOBIN 31.6 pg (27.0-34.0); MEAN CORPUSCULAR HGB CONC 34.4 g/dL (33.0-35.0); MEAN CORPUSCULAR VOLUME 91.9 fL (80.0-100.0); MEAN PLATELET VOLUME 8.1 fL (7.4-11.0); MONOCYTES # (AUTO) 0.5 x10^3/uL (0.3-0.8); MONOCYTES % (AUTO) 7.3 % (0.0-13.0); NEUTROPHILS % (AUTO) 75.5 % (42.0-75.0); PLATELET COUNT 268 X10^3/uL (150.0-450.0); RED BLOOD COUNT 4.14 X10^6/uL (3.5-5.4); RED CELL DISTRIBUTION WIDTH 17.1 % (11.6-16.5); WHITE BLOOD COUNT 6.6 X10^3/uL (3.6-10.0)
[2024-07-01 04:18] LABS: ALANINE AMINOTRANSFERASE 196 Units/L (12-78); ALBUMIN 4.3 g/dL (3.4-5.0); ALKALINE PHOSPHATASE 119 Units/L (46-116); ASPARTATE AMINO TRANSFERASE 381 Units/L (15-37); BLOOD UREA NITROGEN 11 mg/dL (7-18); CALCIUM 9.5 mg/dL (8.5-10.1); CARBON DIOXIDE 32.2 mmol/L (21-32); CHLORIDE 88 mmol/L (98-107); COR NA(FOR HYPERGLY) 133 mmol/L (136-145); CREATININE 0.88 mg/dL (0.55-1.02); GLUCOSE 114 mg/dL (65-99); SODIUM 133 mmol/L (136-145); TOTAL PROTEIN 9.4 g/dL (6.4-8.2); eGFR NON BLACK RACES > 60 (>60)
[2024-07-01 04:23] LABS: APPEARANCE,URINE CLEAR (CLEAR); BILIRUBIN,URINE 1+ (NEGATIVE); BLOOD/HEMOGLOBIN,URINE 2+ (NEGATIVE); COLOR,URINE AMBER (YELLOW); GLUCOSE, URINE NEGATIVE (NEGATIVE); KETONES,URINE 1+ (NEGATIVE); LEUKOCYTE ESTERASE ,URINE 1+ (NEGATIVE); NITRITES,URINE NEGATIVE (NEGATIVE); PROTEIN,URINE 3+ (NEGATIVE); UROBILINOGEN,URINE 2+ (NORMAL)
[2024-07-01 04:24] LABS: BACTERIA,URINE TRACE /HPF (NEGATIVE); HYALINE CASTS, URINE MANY /LPF (NEGATIVE); SQUAMOUS EPITHELIAL CELL,UR FEW /HPF (NEGATIVE)
[2024-07-01 04:26] LABS: LIPASE 329 Units/L (16-77); POTASSIUM 2.3 mmol/L (3.5-5.1)
[2024-07-01] MEDS ORDERED: K-RIDER 10 MEQ/100 ML WATER 10 MEQ/100 ML BAG IV ONE (04:56)
[2024-07-01] MEDS ORDERED: NS 1,000 ML IV 1,000 ML ONE (04:56)
[2024-07-01] MEDS: NS 1,000 ML IV 1,000 ML IV ONE ×2 (05:01→06:37)
[2024-07-01] MEDS: K-RIDER 10 MEQ/100 ML WATER 10 MEQ/100 ML BAG IV ONE ×2 (05:01→06:38)
[2024-07-01] MEDS: ZOFRAN INJ 4 MG VIAL IVP ONE (05:07)
[2024-07-01] MEDS: MORPHINE SULFATE INJ 4 MG IVP ONE ×2 (05:09→06:39)
[2024-07-01] MEDS ORDERED: NS 100 ML IV 100 ML ONE (05:13)
[2024-07-01] MEDS ORDERED: OMNIPAQUE 350 mg/mL 100 mL BTL 100 ML ONE (05:13)
--- NOTE | 2024-07-01 05:59 | CT ---
EXAM: ABDCMEN/PELVIS WITH CON HISTORY: PT C/O EPIGASTRIC ABDOMEN PAIN ; HTN SX: TUBAL, PARTIAL HYST COMPARISON: 03/25/2024 TECHNIQUE: CT of the abdomen and pelvis obtained with IV contrast. Dose reduction techniques including Automated Exposure Control (AEC) and adjustment of mA and kV were utilized. FINDINGS: The visualized portions of the lower thorax demonstrate no acute process. No acute osseous abnormality. The liver, gallbladder, spleen, bilateral adrenal glands, and bilateral kidneys demonstrate no acute process. Hepatic steatosis. Edema in the pancreatic head with surrounding fatty induration. Subcent imeter hypoattenuating renal lesions, likely cysts. No evidence of bowel obstruction. The appendix is unremarkable. The bladder is unremarkable. There is history of partial hysterectomy. However, the uterus is prese nt. No free air or fluid. Nonaneurysmal aorta. Scattered vascular calcifications. IMPRESSION: Acute interstitial edematous pancreatitis. THIS IS AN ELECTRONICALLY VERIFIED FINAL REPORT 07/01/2024 5:56 AM - Electronically signed by Fco Sawyer MD
[2024-07-01] MEDS: TORADOL 15 MG VIAL IVP ONE (06:38)
--- NOTE | 2024-07-01 07:16 | DR.NAUSEAF ---
HPI Time Seen Time Seen by Provider: 07/01/24 05:00 Primary Care Physician Primary Care Physician: Dr. Junior Complaints Chief Complaint Doctors Comments: 49 yo F, hx of alcoholism, c/o epi abd pain for past 6-7 days, accomp by vomiting the past 24h. Pain radiates into mid/upper back. Denies other complaints. Chief Complaint:: Pt brought into ER via EMS c/o abdmonial pain and nausea. Patient was seen in ER 06/18 and diagnosed with gastritis. Patient was told to limit alcohol intake and follow up with PCP on 07/07/24, however, patient states the pain has come unbareable due to being out of her Hydrocodone and she can onl y tolerate drinking alcohol at this time and unable to stomach food. 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 Family History History of Family Medical Conditions: Yes Family Medical History: Diabetes Mellitus, Cancer and Hypertension Social History Type of Tobacco Use: Cigarettes Alcohol Use: DAILY Do you use any recreational Drugs:: No Lives With: Family Lives Where: Home Travel Risk Coronavirus risk:travel/contact w/high risk person: No Has patient experienced Coronavirus symptoms: No Infectious screening In the last 2 months have you had wt loss of >10#?: NO Have you had fever, night sweats or hemotysis?: No Have you traveled outside the country in the last 6 months?: No Isolation: Standard ROS Review of Systems Constitutional: Loss of Appetite; negative Chills, Fever or Malaise Gastrointestinal/Abdominal: Abdominal Pain (epi) and Vomiting All Other Systems: Reviewed and Negative PE Vital Signs Vitals: Vital Signs Temperature 98.4 F Pulse Rate 72 Pulse Rate 73 Pulse Rate 80 Pulse Rate 77 Pulse Rate 79 Pulse Rate 81 Pulse Rate 86 Pulse Rate 87 Pulse Rate 101 Pulse Rate 96 Pulse Rate 87 Pulse Rate 95 Pulse Rate 89 Pulse Rate 90 Pulse Rate 93 Pulse Rate 95 Pulse Rate 91 Pulse Rate 91 Pulse Rate 94 Respiratory Rate 12 Respiratory Rate 20 Respiratory Rate 17 Respiratory Rate 15 Respiratory Rate 15 Respiratory Rate 21 Respiratory Rate 15 Respiratory Rate 15 Respiratory Rate 13 Respiratory Rate 16 Respiratory Rate 16 Respiratory Rate 14 Respiratory Rate 15 Respiratory Rate 16 Respiratory Rate 16 Blood Pressure 148/81 Blood Pressure 150/75 Blood Pressure 156/85 Blood Pressure 156/85 Blood Pressure 156/85 Blood Pressure 162/75 Blood Pressure 165/77 Blood Pressure 170/77 Blood Pressure 179/85 Blood Pressure 179/85 Blood Pressure 175/84 Blood Pressure 170/85 Blood Pressure 170/85 Blood Pressure 168/79 Blood Pressure 173/84 Blood Pressure 168/98 Blood Pressure 173/88 Blood Pressure 187/103 Blood Pressure 160/84 Blood Pressure 183/90 Blood Pressure 189/102 O2 Sat by Pulse Oximetry 100 O2 Sat by Pulse Oximetry 98 O2 Sat by Pulse Oximetry 97 O2 Sat by Pulse Oximetry 100 O2 Sat by Pulse Oximetry 100 O2 Sat by Pulse Oximetry 100 O2 Sat by Pulse Oximetry 99 O2 Sat by Pulse Oximetry 96 O2 Sat by Pulse Oximetry 99 O2 Sat by Pulse Oximetry 100 O2 Sat by Pulse Oximetry 99 O2 Sat by Pulse Oximetry 99 O2 Sat by Pulse Oximetry 100 O2 Sat by Pulse Oximetry 97 O2 Sat by Pulse Oximetry 99 O2 Sat by Pulse Oximetry 100 O2 Sat by Pulse Oximetry 100 O2 Sat by Pulse Oximetry 100 O2 Sat by Pulse Oximetry 99 General Limitations: No Limitations General Appearance: Alert and In No Apparent Distress Head Head Exam: Normal Inspection Eyes Eye exam: Normal Appearance ENT ENT Exam: Normal Exam Neck Neck Exam: Normal Inspection Chest Chest Inspection: Normal Inspection Respiratory Respiratory Exam: Normal Lung Sounds Bilat Respiratory Exam: Bilateral: Clear to Auscultation Cardiovascular Cardiovascular Exam: Regular Rate and Normal Rhythm Abdominal Exam Abdominal Exam: Tenderness (epigastric) and Guarding; negative Distention, Rebound or Rigidity Rectal Rectal Exam: Deferred External Exam: Female: Deferred : Speculum Exam (Female): Deferred : Bimanual Exam (female): Deferred Extremities Extremities Exam: Normal Inspection Back Back Exam: Normal Inspection Neurologic Neurological Exam: Alert and Oriented X3 Psychiatric Psychiatric Exam: Normal Affect and Normal Mood Skin Skin Exam: Warm, Dry, Intact and Normal Color ROR Labs Reviewed Laboratory Results Reviewed?: Yes 07/01/24 03:55 07/01/24 03:55 Laboratory: WBC 6.6 X10^3/uL (3.6-10.0) 07/01/24 03:55 RBC 4.14 X10^6/uL (3.5-5.4) 07/01/24 03:55 Hgb 13.1 g/dL (12.0-16.0) 07/01/24 03:55 Hct 38.1 % (36.0-47.0) 07/01/24 03:55 MCV 91.9 fL (80.0-100.0) 07/01/24 03:55 MCH 31.6 pg (27.0-34.0) 07/01/24 03:55 MCHC 34.4 g/dL (33.0-35.0) 07/01/24 03:55 RDW 17.1 % (11.6-16.5) H 07/01/24 03:55 Plt Count 268 X10^3/uL (150.0-450.0) 07/01/24 03:55 MPV 8.1 fL (7.4-11.0) 07/01/24 03:55 Neut % (Auto) 75.5 % (42.0-75.0) H 07/01/24 03:55 Lymph % (Auto) 15.7 % (21.0-51.0) L 07/01/24 03:55 [place] % (Auto) 7.3 % (0.0-13.0) 07/01/24 03:55 Eos % (Auto) 0.9 % (0.9-2.9) 07/01/24 03:55 Baso % (Auto) 0.6 % (0.2-1.0) 07/01/24 03:55 Neut # (Auto) 5.0 x10^3/uL (2.2-4.8) H 07/01/24 03:55 Lymph # (Auto) 1.0 X10^3/uL (1.3-2.9) L 07/01/24 03:55 [place] # (Auto) 0.5 x10^3/uL (0.3-0.8) 07/01/24 03:55 Eos # (Auto) 0.1 x10^3/uL (0.0-0.2) 07/01/24 03:55 Baso # (Auto) 0.0 X10^3/uL (0.0-0.1) 07/01/24 03:55 Absolute Nucleated RBC 0.0 /100WBC 07/01/24 03:55 Sodium 133 mmol/L (136-145) L 07/01/24 03:55 Corrected Sodium 133 mmol/L (136-145) L 07/01/24 03:55 Potassium 2.3 mmol/L (3.5-5.1) L* 07/01/24 03:55 Chloride 88 mmol/L (98-107) L 07/01/24 03:55 Carbon Dioxide 32.2 mmol/L (21-32) H 07/01/24 03:55 BUN 11 mg/dL (7-18) 07/01/24 03:55 Creatinine 0.88 mg/dL (0.55-1.02) 07/01/24 03:55 Est GFR (MDRD) Af Amer > 60 (>60) 07/01/24 03:55 Est GFR (MDRD) Non-Af > 60 (>60) 07/01/24 03:55 Glucose 114 mg/dL (65-99) H 07/01/24 03:55 Calcium 9.5 mg/dL (8.5-10.1) 07/01/24 03:55 Corrected Calcium TNP 07/01/24 03:55 Total Bilirubin 0.50 mg/dL (0.2-1.0) 07/01/24 03:55 AST 381 Units/L (15-37) H 07/01/24 03:55 ALT 196 Units/L (12-78) H 07/01/24 03:55 Alkaline Phosphatase 119 Units/L (46-116) H 07/01/24 03:55 Total Protein 9.4 g/dL (6.4-8.2) H 07/01/24 03:55 Albumin 4.3 g/dL (3.4-5.0) 07/01/24 03:55 Globulin 5.1 g/dL (2.5-4.5) H 07/01/24 03:55 Albumin/Globulin Ratio 0.8 Ratio (1.1-2.1) L 07/01/24 03:55 Lipase 329 Units/L (16-77) H 07/01/24 03:55 Specimen Type Clean catch urine 07/01/24 04:01 Urine Color [place] (YELLOW) 07/01/24 04:01 Urine Appearance Clear (CLEAR) 07/01/24 04:01 Urine pH 5.0 (5.0 - 8.0) 07/01/24 04:01 Ur Specific [place] 1.020 (1.000-1.030) 07/01/24 04:01 Urine Protein 3+ (NEGATIVE) 07/01/24 04:01 Urine Glucose (UA) Negative (NEGATIVE) 07/01/24 04:01 Urine Ketones 1+ (NEGATIVE) 07/01/24 04:01 Urine Blood 2+ (NEGATIVE) 07/01/24 04:01 Urine Nitrite Negative (NEGATIVE) 07/01/24 04:01 Urine Bilirubin 1+ (NEGATIVE) 07/01/24 04:01 Urine Urobilinogen 2+ (NORMAL) 07/01/24 04:01 Ur Leukocyte Esterase 1+ (NEGATIVE) 07/01/24 04:01 Urine RBC 3-5 /HPF (0-3) A 07/01/24 04:01 Urine WBC 3-5 /HPF (0-5) 07/01/24 04:01 Ur Squamous Epith Cells Few /HPF (NEGATIVE) 07/01/24 04:01 Amorphous Sediment 1+ /HPF (NEGATIVE) 07/01/24 04:01 Urine Bacteria Trace /HPF (NEGATIVE) 07/01/24 04:01 Hyaline Casts Many /LPF (NEGATIVE) 07/01/24 04:01 Urine Mucus Numerous /HPF (NEGATIVE) 07/01/24 04:01 Ur Culture Indicated? No/not indicated 07/01/24 04:01 Urine Opiates Screen Positive (NEG=<300) A 07/01/24 04:01 Urine Methadone Screen Negative (NEG=<300) 07/01/24 04:01 Ur Barbiturates Screen Negative (NEG=<200) 07/01/24 04:01 Ur Phencyclidine Scrn Negative (NEG=<25) 07/01/24 04:01 Ur Amphetamines Screen Negative (NEG=<1000) 07/01/24 04:01 U Benzodiazepines Scrn Negative (NEG=<200) 07/01/24 04:01 Urine Cocaine Screen Negative (NEG=<300) 07/01/24 04:01 U Marijuana (THC) Screen Negative (NEG=<50) 07/01/24 04:01 Ethyl Alcohol mg/dL < 3 mg/dL (0-19.9) 07/01/24 03:55 SARS-CoV-2 (PCR) Negative (NEGATIVE) 07/01/24 03:49 Influenza Type A (PCR) Negative (NEGATIVE) 07/01/24 03:49 Influenza Type B (PCR) Negative (NEGATIVE) 07/01/24 03:49 RSV (PCR) Negative (NEGATIVE) 07/01/24 03:49 XRAY X-ray Results: CT: acute pancreatitis Opioid Opioid Risk Tool Age (Damaso box if 16-45): No History of Preadolescent Sexual Abuse: No Total: 0 Total Score Risk Category: Low Risk Copyright: [facility] predicting aberrant behaviors Discharge Plan Diagnosis Discharge Problem: Acute alcoholic pancreatitis, Acute hypokalemia Discharge Plan Patient Disposition: ADMITTED INPATIENT Condition: Stable Prescriptions: No Action hydrocodone-acetaminophen 10-325 mg tablet 1 tab PO TID PRN cyproheptadine 4 mg tablet 4 mg PO QPM amlodipine 10 mg tablet 10 mg PO QDAY lisinopril-hydrochlorothiazide 20-25 mg tablet 1 tab PO QDAY gabapentin 100 mg capsule 100 mg PO QDAY zolpidem 10 mg tablet 10 mg PO DAILY Health Concerns: Post Hospitalization: new medications and changes needed to prevent readmission or further decline. Pt educated and given instructions on all concerns. Plan of Treatment: Continue with present treatment and follow up plan. Pt is to keep follow up appointment as instructed and take medications as ordered. Orders to Discharge Patient Discharge Orders: Transfer (Routine); Ordered 07/01/24 Ordered By: Aakash Tejeda Follow ups/Referrals Follow ups/Referrals: Yash Junior MD [Primary Care Provider] - 3 days Instructions Stand Alone Forms: Find Help Web Site, Post Hospital Follow Up Care ADDITIONAL NOTES Additional Notes Additional Notes: Accepted by Dr Molina at [id number]
[2024-07-01] MEDS: NORVASC TAB 10 MG PO SCH (11:21)
[2024-07-01] MEDS: MORPHINE SULFATE INJ 2 MG INJ IVP PRN (11:21)
[2024-07-01] MEDS: ZESTORETIC 20/25 MG PO SCH (11:21)
[2024-07-01] MEDS: NS 1,000 ML IV 1,000 ML IV SCH (11:21)
[2024-07-01] MEDS: NICOTINE PATCH TD SCH (20:53)
[2024-07-01] MEDS: AMBIEN PO SCH (20:53)
[2024-07-01] MEDS: CHECK PATCH XX SCH (20:54)
[2024-07-02] MEDS: ZOFRAN INJ 4 MG VIAL IVP PRN (01:10)
[2024-07-02 06:16] LABS: WHITE BLOOD COUNT 5.1 X10^3/uL (3.6-10.0)
[2024-07-02 06:19] LABS: BASOPHILS % (AUTO) 0.5 % (0.2-1.0); EOSINOPHILS # (AUTO) 0.1 x10^3/uL (0.0-0.2); EOSINOPHILS % (AUTO) 1.6 % (0.9-2.9); HEMATOCRIT 34.4 % (36.0-47.0); HEMOGLOBIN 11.5 g/dL (12.0-16.0); LYMPHOCYTES # (AUTO) 1.2 X10^3/uL (1.3-2.9); LYMPHOCYTES % (AUTO) 22.7 % (21.0-51.0); MEAN CORPUSCULAR HEMOGLOBIN 31.1 pg (27.0-34.0); MEAN CORPUSCULAR HGB CONC 33.6 g/dL (33.0-35.0); MEAN CORPUSCULAR VOLUME 92.6 fL (80.0-100.0); MEAN PLATELET VOLUME 8.4 fL (7.4-11.0); MONOCYTES # (AUTO) 0.4 x10^3/uL (0.3-0.8); MONOCYTES % (AUTO) 8.1 % (0.0-13.0); NEUTROPHILS # (AUTO) 3.4 x10^3/uL (2.2-4.8); NEUTROPHILS % (AUTO) 67.1 % (42.0-75.0); PLATELET COUNT 237 X10^3/uL (150.0-450.0); RED BLOOD COUNT 3.72 X10^6/uL (3.5-5.4); RED CELL DISTRIBUTION WIDTH 17.4 % (11.6-16.5)
[2024-07-02 06:22] LABS: ALANINE AMINOTRANSFERASE 188 Units/L (12-78); ALBUMIN 3.5 g/dL (3.4-5.0); ALKALINE PHOSPHATASE 97 Units/L (46-116); ASPARTATE AMINO TRANSFERASE 351 Units/L (15-37); BLOOD UREA NITROGEN 4 mg/dL (7-18); CALCIUM 8.8 mg/dL (8.5-10.1); CARBON DIOXIDE 31.3 mmol/L (21-32); CHLORIDE 93 mmol/L (98-107); CHOL/HDL RATIO 1.6 (0.0-5.0); CHOLESTEROL 174 mg/dL (0-200); CREATININE 0.55 mg/dL (0.55-1.02); GLUCOSE 86 mg/dL (65-99); HDL CHOLESTEROL 109 mg/dL (40-60); MAGNESIUM 1.9 mg/dL (2.0-2.9); SODIUM 135 mmol/L (136-145); TOTAL PROTEIN 7.8 g/dL (6.4-8.2); TRIGLYCERIDES 39 mg/dL (0-150); eGFR NON BLACK RACES > 60 (>60)
[2024-07-02 06:25] LABS: INR 0.98 (0.8-1.3)
[2024-07-02 06:26] LABS: POTASSIUM 2.7 mmol/L (3.5-5.1)
--- NOTE | 2024-07-02 06:57 | DR.H&P ---
H&P History & Physical for Day of: H&P Date: 07/01/24 Chief Complaint Chief Complaint: abdominal pain History of Present Illness History of Present Illness: Patient is a 49-year-old female presenting with abdominal pain for the past week that is progressively gotten worse. She reports her is her pain is epigastric is causing her to have nausea. Labs/imaging: WBC 6.6, hemoglobin 13.1, platelets 268, sodium 133, potassium 2. 3, creatinine 0.88, glucose 114, AST 381, ALT 196, alkaline phosphatase 119, lipase 329, UA negative, COVID/flu/RSV negative, CT abdomen and pelvis was obtained that revealed edematous pancreatitis. Patient was admitted for acute pancreatitis. He will start her on IV fluids normal saline at 75 mL/h, IV morphine as needed for pain control. Clear liquid diet, advance diet as tolerated. Replete potassium as per protocol. Restart home medications. Otherwise continue with current treatment plan. Continue closely monitor and follow-up labs in the morning. Past Medical History Past Medical History: Anxiety, Depression, GERD, Hypertension and Hyp erthyroidism Past Surgical History Surgical History: GUIDANCE DIRECT[employer] Surgery Family History Family Medical History: Diabetes Mellitus, Cancer and Hypertension Social History Does patient currently use any type of tobacco product: Yes Type of Tobacco Use: Cigarettes Alcohol Use: DAILY Drug Use: None Medications Home Medications: Home Medications Medication Instructions Recorded Confirmed Type amlodipine 10 mg tablet 10 mg PO QDAY 07/01/24 07/01/24 History cyproheptadine 4 mg tablet 4 mg PO QPM 07/01/24 07/01/24 History gabapentin 100 mg capsule 100 mg PO QDAY 07/01/24 07/01/24 History hydrocodone 10 mg-acetaminophen 1 tab PO TID PRN 07/01/24 07/01/24 History 325 mg tablet lisinopril 20 1 tab PO QDAY 07/01/24 07/01/24 History mg-hydrochlorothiazide 25 mg tablet zolpidem 10 mg tablet 10 mg PO DAILY 07/01/24 07/01/24 History Allergies Allergies Allergy/AdvReac Type Severity Reaction Status Date / Time No Known Drug Allergies Allergy Verified 07/01/24 03:44 Labs 07/02/24 05:50 07/02/24 05:50 Labs: Laboratory WBC 5.1 X10^3/uL (3.6-10.0) 07/02/24 05:50 RBC 3.72 X10^6/uL (3.5-5.4) 07/02/24 05:50 Hgb 11.5 g/dL (12.0-16.0) L 07/02/24 05:50 Hct 34.4 % (36.0-47.0) L 07/02/24 05:50 MCV 92.6 fL (80.0-100.0) 07/02/24 05:50 MCH 31.1 pg (27.0-34.0) 07/02/24 05:50 MCHC 33.6 g/dL (33.0-35.0) 07/02/24 05:50 RDW 17.4 % (11.6-16.5) H 07/02/24 05:50 Plt Count 237 X10^3/uL (150.0-450.0) 07/02/24 05:50 MPV 8.4 fL (7.4-11.0) 07/02/24 05:50 Neut % (Auto) 67.1 % (42.0-75.0) 07/02/24 05:50 Lymph % (Auto) 22.7 % (21.0-51.0) 07/02/24 05:50 [place] % (Auto) 8.1 % (0.0-13.0) 07/02/24 05:50 Eos % (Auto) 1.6 % (0.9-2.9) 07/02/24 05:50 Baso % (Auto) 0.5 % (0.2-1.0) 07/02/24 05:50 Neut # (Auto) 3.4 x10^3/uL (2.2-4.8) 07/02/24 05:50 Lymph # (Auto) 1.2 X10^3/uL (1.3-2.9) L 07/02/24 05:50 [place] # (Auto) 0.4 x10^3/uL (0.3-0.8) 07/02/24 05:50 Eos # (Auto) 0.1 x10^3/uL (0.0-0.2) 07/02/24 05:50 Baso # (Auto) 0.0 X10^3/uL (0.0-0.1) 07/02/24 05:50 Absolute Nucleated RBC 0.2 /100WBC 07/02/24 05:50 PT 12.8 SECONDS (11.8-14.3) 07/02/24 05:50 INR Target Range - 07/02/24 05:50 INR 0.98 (0.8-1.3) 07/02/24 05:50 APTT 27.7 SECONDS (22.9-36.5) 07/02/24 05:50 PTT Comment - 07/02/24 05:50 Sodium 135 mmol/L (136-145) L 07/02/24 05:50 Corrected Sodium TNP 07/02/24 05:50 Potassium 2.7 mmol/L (3.5-5.1) L* 07/02/24 05:50 Chloride 93 mmol/L (98-107) L 07/02/24 05:50 Carbon Dioxide 31.3 mmol/L (21-32) 07/02/24 05:50 BUN 4 mg/dL (7-18) L 07/02/24 05:50 Creatinine 0.55 mg/dL (0.55-1.02) 07/02/24 05:50 Est GFR (MDRD) Af Amer > 60 (>60) 07/02/24 05:50 Est GFR (MDRD) Non-Af > 60 (>60) 07/02/24 05:50 Glucose 86 mg/dL (65-99) 07/02/24 05:50 Calcium 8.8 mg/dL (8.5-10.1) 07/02/24 05:50 Corrected Calcium TNP 07/02/24 05:50 Magnesium 1.9 mg/dL (2.0-2.9) L 07/02/24 05:50 Total Bilirubin 0.50 mg/dL (0.2-1.0) 07/02/24 05:50 AST 351 Units/L (15-37) H 07/02/24 05:50 ALT 188 Units/L (12-78) H 07/02/24 05:50 Alkaline Phosphatase 97 Units/L (46-116) 07/02/24 05:50 Creatine Kinase 81 Units/L (26-192) 07/01/24 20:22 Troponin I High Sens 12.1 ng/L (4.0-60.0) 07/01/24 20:22 Total Protein 7.8 g/dL (6.4-8.2) 07/02/24 05:50 Albumin 3.5 g/dL (3.4-5.0) 07/02/24 05:50 Globulin 4.3 g/dL (2.5-4.5) 07/02/24 05:50 Albumin/Globulin Ratio 0.8 Ratio (1.1-2.1) L 07/02/24 05:50 Triglycerides 39 mg/dL (0-150) 07/02/24 05:50 Cholesterol 174 mg/dL (0-200) 07/02/24 05:50 LDL Cholesterol, Calc 57 mg/dL (0-100) 07/02/24 05:50 HDL Cholesterol 109 mg/dL (40-60) H 07/02/24 05:50 Cholesterol/HDL Ratio 1.6 (0.0-5.0) 07/02/24 05:50 Lipase 329 Units/L (16-77) H 07/01/24 03:55 Specimen Type Clean catch urine 07/01/24 04:01 Urine Color [place] (YELLOW) 07/01/24 04:01 Urine Appearance Clear (CLEAR) 07/01/24 04:01 Urine pH 5.0 (5.0 - 8.0) 07/01/24 04:01 Ur Specific [place] 1.020 (1.000-1.030) 07/01/24 04:01 Urine Protein 3+ (NEGATIVE) 07/01/24 04:01 Urine Glucose (UA) Negative (NEGATIVE) 07/01/24 04:01 Urine Ketones 1+ (NEGATIVE) 07/01/24 04:01 Urine Blood 2+ (NEGATIVE) 07/01/24 04:01 Urine Nitrite Negative (NEGATIVE) 07/01/24 04:01 Urine Bilirubin 1+ (NEGATIVE) 07/01/24 04:01 Urine Urobilinogen 2+ (NORMAL) 07/01/24 04:01 Ur Leukocyte Esterase 1+ (NEGATIVE) 07/01/24 04:01 Urine RBC 3-5 /HPF (0-3) A 07/01/24 04:01 Urine WBC 3-5 /HPF (0-5) 07/01/24 04:01 Ur Squamous Epith Cells Few /HPF (NEGATIVE) 07/01/24 04:01 Amorphous Sediment 1+ /HPF (NEGATIVE) 07/01/24 04:01 Urine Bacteria Trace /HPF (NEGATIVE) 07/01/24 04:01 Hyaline Casts Many /LPF (NEGATIVE) 07/01/24 04:01 Urine Mucus Numerous /HPF (NEGATIVE) 07/01/24 04:01 Ur Culture Indicated? No/not indicated 07/01/24 04:01 Urine Opiates Screen Positive (NEG=<300) A 07/01/24 04:01 Urine Methadone Screen Negative (NEG=<300) 07/01/24 04:01 Ur Barbiturates Screen Negative (NEG=<200) 07/01/24 04:01 Ur Phencyclidine Scrn Negative (NEG=<25) 07/01/24 04:01 Ur Amphetamines Screen Negative (NEG=<1000) 07/01/24 04:01 U Benzodiazepines Scrn Negative (NEG=<200) 07/01/24 04:01 Urine Cocaine Screen Negative (NEG=<300) 07/01/24 04:01 U Marijuana (THC) Screen Negative (NEG=<50) 07/01/24 04:01 Ethyl Alcohol mg/dL < 3 mg/dL (0-19.9) 07/01/24 03:55 SARS-CoV-2 (PCR) Negative (NEGATIVE) 07/01/24 03:49 Influenza Type A (PCR) Negative (NEGATIVE) 07/01/24 03:49 Influenza Type B (PCR) Negative (NEGATIVE) 07/01/24 03:49 RSV (PCR) Negative (NEGATIVE) 07/01/24 03:49 Review of Systems Constitutional: No Symptoms Reported Eyes: No Symptoms Reported ENT: No Symptoms Reported Respiratory: No Symptoms Reported Cardiovascular: No Symptoms Reported Gastrointestinal: Nausea and Abdominal Pain Genitourinary: No Symptoms Reported Musculoskeletal: No Symptoms Reported Skin: No Symptoms Reported Neurological: No Symptoms Reported Physical Exam Vital Signs: Vital Signs Temperature 98.6 F Temperature 98.3 F Pulse Rate [Left Brachial] 77 Pulse Rate [Left Brachial] 79 Respiratory Rate 18 Respiratory Rate 19 Respiratory Rate 18 Respiratory Rate 18 Respiratory Rate 18 Respiratory Rate 18 Respiratory Rate 20 Respiratory Rate 21 Blood Pressure [Right Arm] 102/73 Blood Pressure [Right Arm] 109/72 O2 Sat by Pulse Oximetry 99 O2 Sat by Pulse Oximetry 100 Oriented: Normal Eyes: Normal Ear: Normal Nose: Normal Throat: Normal Respiratory: Clear Throughout Cardiovascular: Normal : Normal Auscultation: Bowel Sounds: Normal Palpation: Normal Tenderness: Normal Skin: Normal Musculoskeletal: Normal Psychiatric: Normal Mood Description: Calm and Appropriate Affect: Normal Speech Pattern: Clear and Appropriate Assessment/Plan (1) Acute pancreatitis: Qualifiers: Pancreatitis type: unspecified pancreatitis type Acute pancreatitis complication: unspecified Qualified Code(s): K85.90 - Acute pancreatitis without necrosis or infection, unspecified Status: Acute Plan: IVF, CLD, advance diet as tolerated Pain control (2) Acute hypokalemia: Status: Acute Plan: replete per protocol Review H&P Reviewed: Yes Patient was examined?: Yes
[2024-07-02] MEDS ORDERED: CONSULT PHARMACY - POTASSIUM & MAGNESIUM XX SCH (07:00)
[2024-07-02] MEDS: K-DUR TAB 20 MEQ PO SCH (09:08)
[2024-07-02] MEDS: MAG-OX TAB PO SCH (09:08)
[2024-07-02] MEDS: COLACE CAP 100 MG PO SCH (11:27)
--- NOTE | 2024-07-02 15:06 | NOTE.SOAP ---
Soap Note Note for Day of Date of Exam: 07/02/24 Subjective Data Subjective Data: Patient seen with nurse for morning rounds. Belly pain still present but improved. Appetite seems to be returning and she would like to try to eat. Objective Data Objective Data: Well-developed, well-nourished, NAD. Head NCAT. Hearing intact conversation. Heart regular rate and rhythm. Lungs are clear with strong speech. Belly is slightly tender in the right upper quadrant with hypoactive bowel sounds. Assessment Assessment: 1. Acute [id number] diet, IV fluids, pain control 2. Anemia of chronic disease-monitor.
[2024-07-02] MEDS: PHENERGAN INJ 25 MG IM PRN (23:28)
[2024-07-03 06:12] LABS: BASOPHILS % (AUTO) 0.8 % (0.2-1.0); EOSINOPHILS # (AUTO) 0.1 x10^3/uL (0.0-0.2); EOSINOPHILS % (AUTO) 2.4 % (0.9-2.9); HEMATOCRIT 32.5 % (36.0-47.0); LYMPHOCYTES # (AUTO) 1.3 X10^3/uL (1.3-2.9); LYMPHOCYTES % (AUTO) 30.7 % (21.0-51.0); MEAN CORPUSCULAR HEMOGLOBIN 31.7 pg (27.0-34.0); MEAN CORPUSCULAR HGB CONC 33.7 g/dL (33.0-35.0); MEAN CORPUSCULAR VOLUME 94.1 fL (80.0-100.0); MEAN PLATELET VOLUME 8.6 fL (7.4-11.0); MONOCYTES # (AUTO) 0.5 x10^3/uL (0.3-0.8); MONOCYTES % (AUTO) 11.8 % (0.0-13.0); NEUTROPHILS # (AUTO) 2.4 x10^3/uL (2.2-4.8); NEUTROPHILS % (AUTO) 54.3 % (42.0-75.0); PLATELET COUNT 223 X10^3/uL (150.0-450.0); RED BLOOD COUNT 3.46 X10^6/uL (3.5-5.4); RED CELL DISTRIBUTION WIDTH 17.5 % (11.6-16.5); WHITE BLOOD COUNT 4.4 X10^3/uL (3.6-10.0)
[2024-07-03 06:26] LABS: ALANINE AMINOTRANSFERASE 143 Units/L (12-78); ALBUMIN 2.9 g/dL (3.4-5.0); ALKALINE PHOSPHATASE 81 Units/L (46-116); ASPARTATE AMINO TRANSFERASE 189 Units/L (15-37); BLOOD UREA NITROGEN 3 mg/dL (7-18); CALCIUM 8.7 mg/dL (8.5-10.1); CARBON DIOXIDE 30.4 mmol/L (21-32); CHLORIDE 98 mmol/L (98-107); COR CA(FOR HYPOALB) 9.6 mg/dL (8.5-10.1); CREATININE 0.63 mg/dL (0.55-1.02); GLUCOSE 98 mg/dL (65-99); MAGNESIUM 1.8 mg/dL (2.0-2.9); SODIUM 137 mmol/L (136-145); TOTAL PROTEIN 6.7 g/dL (6.4-8.2); eGFR NON BLACK RACES > 60 (>60)
[2024-07-03 06:31] LABS: POTASSIUM 2.9 mmol/L (3.5-5.1)
[2024-07-03] MEDS ORDERED: CONSULT PHARMACY - POTASSIUM & MAGNESIUM XX SCH (07:00)
[2024-07-03] MEDS: K-DUR TAB 20 MEQ PO SCH (08:35)
[2024-07-03] MEDS: MAG-OX TAB PO SCH (08:35)
[2024-07-03] MEDS: MILK OF MAGNESIA PO SCH (13:20)
--- NOTE | 2024-07-03 14:19 | NOTE.SOAP ---
Soap Note Note for Day of Date of Exam: 07/03/24 Subjective Data Subjective Data: Patient seen with nurse for daily rounds. Reports she did eat supper and breakfast today with worsening abdominal pain. Had eggs and sausage for breakfast with lasagna for supper last night. Nurse will work with dietary to make sure she does have a low/no fat diet. Objective Data Objective Data: Well-developed, well-nourished female in no acute distress. Hearing intact conversation. Head NCAT. Heart regular rate and rhythm. Belly is soft, tender in the epigastrium and right upper quadrant, with normoactive bowel sounds. Lungs are clear bilaterally. Assessment Assessment: 1. Acute [id number] diet, IV fluids, pain control 2. Anemia of chronic disease-monitor. 3. Acute hypokalemia-replete per protocol.
[2024-07-03] MEDS: NORCO 10/325 TAB PO PRN (16:16)
[2024-07-04 05:49] LABS: BASOPHILS % (AUTO) 1.4 % (0.2-1.0); EOSINOPHILS # (AUTO) 0.1 x10^3/uL (0.0-0.2); EOSINOPHILS % (AUTO) 2.5 % (0.9-2.9); HEMATOCRIT 30.2 % (36.0-47.0); HEMOGLOBIN 10.3 g/dL (12.0-16.0); LYMPHOCYTES # (AUTO) 1.6 X10^3/uL (1.3-2.9); LYMPHOCYTES % (AUTO) 46.2 % (21.0-51.0); MEAN CORPUSCULAR HEMOGLOBIN 32.1 pg (27.0-34.0); MEAN CORPUSCULAR HGB CONC 34.1 g/dL (33.0-35.0); MEAN CORPUSCULAR VOLUME 94.2 fL (80.0-100.0); MEAN PLATELET VOLUME 8.3 fL (7.4-11.0); MONOCYTES # (AUTO) 0.4 x10^3/uL (0.3-0.8); MONOCYTES % (AUTO) 12.1 % (0.0-13.0); NEUTROPHILS # (AUTO) 1.3 x10^3/uL (2.2-4.8); NEUTROPHILS % (AUTO) 37.8 % (42.0-75.0); PLATELET COUNT 238 X10^3/uL (150.0-450.0); RED CELL DISTRIBUTION WIDTH 17.5 % (11.6-16.5); WHITE BLOOD COUNT 3.5 X10^3/uL (3.6-10.0)
[2024-07-04 06:00] LABS: ALANINE AMINOTRANSFERASE 127 Units/L (12-78); ALBUMIN 2.8 g/dL (3.4-5.0); ALKALINE PHOSPHATASE 83 Units/L (46-116); ASPARTATE AMINO TRANSFERASE 134 Units/L (15-37); BLOOD UREA NITROGEN 4 mg/dL (7-18); CHLORIDE 100 mmol/L (98-107); CREATININE 0.63 mg/dL (0.55-1.02); GLUCOSE 91 mg/dL (65-99); MAGNESIUM 1.6 mg/dL (2.0-2.9); POTASSIUM 3.7 mmol/L (3.5-5.1); SODIUM 138 mmol/L (136-145); TOTAL PROTEIN 6.6 g/dL (6.4-8.2); eGFR NON BLACK RACES > 60 (>60)
[2024-07-04] MEDS ORDERED: CONSULT PHARMACY - POTASSIUM & MAGNESIUM XX SCH (07:00)
[2024-07-04 07:49] VITALS: BP 136/77; PULSE 92; TEMP 98.5; O2SAT 99
[2024-07-04] MEDS: K-DUR TAB 20 MEQ PO SCH (08:24)
[2024-07-04] MEDS ORDERED: MAG-OX TAB PO SCH (09:00)
[2024-07-04 09:28] VITALS: RESP 16
[2024-07-04] MEDS: NS 1,000 ML IV 1,000 ML with MAGNESIUM SULFATE 50% INJ VIAL 1 G IV SCH (09:28)
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
== END 2024-07-04 11:45 | disposition home or self-care (01) | DRG 439 ==
LOC: ER 03:36 → MED/SURG 07:29
PROVIDERS: ADMIT Family Medicine; ATTEND Family Medicine
DX: E87.1 Hypo-osmolality and hyponatremia; Z03.818 Encounter for observation for suspected exposure to other biological agents ruled out; R10.13 Epigastric pain; F41.8 Other specified anxiety disorders; K21.9 Gastro-esophageal reflux disease without esophagitis; D63.8 Anemia in other chronic diseases classified elsewhere; E83.42 Hypomagnesemia; K29.00 Acute gastritis without bleeding; E87.6 Hypokalemia; Z72.0 Tobacco use; I10 Essential (primary) hypertension; K85.20 Alcohol induced acute pancreatitis without necrosis or infection